=== PATIENT | female | born 1950 | race Caucasian/White ===

== ENCOUNTER 2016-05-20 14:49 | Emergency (ER) | payer MEDICAID ==
--- NOTE | 2016-05-20 15:53 | Emergency Department Record ---
History of Present Illness - General Chief Complaint: Fall Injury Stated Complaint: PT FELL/LT SIDE RIB PAIN,RT WRIST AND FINGER PAIN Time Seen by Provider: 05/20/16 15:37 Source: Patient Mode of Arrival: Ambulatory Limitations: No limitations - History of Present Illness Initial Comments: 65 yo female presents after a fall yesterday at the grocery store. Her foot stuck on a sticky floor. She twisted her back causing a fall. She has back pain in the upper and lower, right wrist pain and left shoulder pain. She has had prior back surgery. Onset/Timin -: Days(s) Fall From: Standing When Fall Occurred: 24 hours REGISTERED DENTAL ASSISTANT RDA Fall Witnessed: Yes, by bystander Place Fall Occurred: Other Loss of Consciousness: None Prolonged Down Time?: No Symptoms Prior to Fall: None Location - Extremities: Left: Shoulder, Right: Forearm Severity: Moderate Severity scale (1-10): 8 Quality: Sharp Context: Tripped/slipped - Barry Coma Scale Eye Response: (4) Open spontaneously Motor Response: (6) Obeys commands Verbal Response: (5) Oriented Geronimo Total: 15 - Related Data Home Medications Medication Instructions Recorded Confirmed Last Taken Aspirin [Aspirin EC] 81 mg PO DAILY 09/28/14 05/20/16 05/20/16 Ferrous Sulfate 325 mg PO BID 09/28/14 05/20/16 05/20/16 Folic Acid 1 mg PO DAILY 09/28/14 05/20/16 05/20/16 Hydroxychloroquine Sulfate 200 mg PO DAILY 09/28/14 05/20/16 05/20/16 [Plaquenil] Lisinopril 40 mg PO DAILY 09/28/14 05/20/16 05/20/16 Albuterol Sulfate [Proair Hfa] 1 - 2 puff IH Q4-6HR inhaler 09/28/15 05/20/16 05/20/16 Previous Rx's Medication Instructions Recorded Diazepam [Valium] 5 mg PO Q8H #15 tab 05/20/16 Allergies Allergy/AdvReac Type Severity Reaction Status Date / Time Sulfa (Sulfonamide Allergy Severe ANAPHYLAXIS Verified 05/20/16 15:22 Antibiotics) adhesive Allergy Intermediate ITCHING Verified 05/20/16 15:22 simvastatin Allergy Intermediate muscle pain Verified 05/20/16 15:22 Nzmuvlp-Tnn-[id number] Reductase Allergy Intermediate HYPERSENSIT Verified 05/20/16 15: 22 Inhibitor IVITY Travel Screening - Travel/Exposure Within Last 30 Days Have you traveled within the last 30 days?: No - Travel/Exposure Within Last Year Have you traveled outside the [place] in the last year?: No - Additonal Travel Details Have you been exposed to anyone with a communicable illness?: No - Travel Symptoms Symptom Screening: None Review of Systems Constitutional: Denies: Chills, Fever, Malaise, Weakness Eyes: Denies: Eye discharge ENT: Denies: Congestion, Throat pain Respiratory: Denies: Cough, Dyspnea, Hemoptysis, Stridor, Wheezes Cardiovascular: Denies: Chest pain, Palpitations, Syncope Endocrine: Denies: Fatigue Gastrointestinal: Denies: Abdominal pain, Diarrhea, Nausea, Vomiting Genitourinary: Denies: Dysuria, Urgency Musculoskeletal: Reports: Arthralgia, Back pain, Myalgia. Denies: Joint swelling, Neck pain Skin: Denies: Bruising, Change in color, Rash Neurological: Denies: Confusion, Headache Psychiatric: Denies: Anxiety Hematological/Lymphatic: Denies: Easy bleeding, Easy bruising, Swollen glands Past Medical History - SOCIAL HISTORY Smoking Status: Never smoker Alcohol Use: None Drug Use: None - RESPIRATORY Hx Respiratory Disorders: Yes Hx Asthma: Yes - CARDIOVASCULAR Hx Cardio Disorders: Yes Hx Irregular Heartbeat: Yes - NEURO Hx Neuro Disorders: Yes Comment:: Aneurysm - GI Hx GI Disorders: Yes Hx Reflux: Yes - Hx Genitourinary Disorders: Yes Hx Kidney Stones: Yes (hx) - ENDOCRINE Hx Endocrine Disorders: Yes Hx Diabetes: Yes (Type 2) Hx Thyroid Disease: Yes (Hypo) - MUSCULOSKELETAL Hx Musculoskeletal Disorders: Yes Hx Fibromyalgia: Yes - PSYCH Hx Psych Problems: Yes Hx Depression: Yes - HEMATOLOGY/ONCOLOGY Hx Hematology/Oncology Disorders: No Family Medical History Any Significant Family History?: Yes Hx Cancer: Brother/Sister Hx Heart Disease: Father, Brother/Sister Hx Stroke: Mother Physical Exam - General General Appearance: Alert, Oriented x3, Cooperative, No acute distress Limitations: No limitations - Head Head exam: Atraumatic, Normal inspection - Eye Eye exam: Normal appearance, PERRL. negative: Conjunctival injection, Periorbital swelling, Periorbital tenderness - ENT ENT exam: Normal exam, Mucous membranes moist, Normal external ear exam, Normal orophraynx Ear exam: Normal external inspection. negative: External canal tenderness Nasal Exam: Normal inspection. negative: Discharge, Sinus tenderness Mouth exam: Normal external inspection, Tongue normal Teeth exam: Normal inspection. negative: Dental caries Throat exam: Normal inspection. negative: Tonsillar erythema, Tonsillar exudate - Neck Neck exam: Normal inspection, Full ROM. negative: Tenderness - Respiratory Respiratory exam: Normal lung sounds bilaterally. negative: Respiratory distress - Cardiovascular Cardiovascular Exam: Regular rate, Normal rhythm, Normal heart sounds Peripheral Pulses: 2+: Radial (R), Radial (L) - GI/Abdominal GI/Abdominal exam: Soft. negative: Tenderness - Rectal Rectal exam: Deferred - exam: Deferred - Extremities Extremities exam: Normal inspection, Full ROM, Tenderness. negative: Joint swelling, Normal capillary refill Image of Full Body: 1 - distal right radius tenderness, no swelling or redness, pain with ROM 2 - tenderness anteriorly, near full ROM, pain with ROM, 3 - tender to palpation mid thoracic to lumbar, normal inspection, no abrasions. - Back Back exam: Reports: Normal inspection, Muscle spasm, Paraspinal tenderness, Tenderness, Vertebral tenderness. Denies: Full ROM - Neurological Neurological exam: Alert, Normal gait, Oriented X3, Reflexes normal. negative: Altered, Motor sensory deficit - Psychiatric Psychiatric exam: Normal affect, Normal mood - Skin Skin exam: Dry, Intact, Normal color, Warm Course Vital Signs 05/20/16 15:25 Temperature 98 F Pulse Rate 72 Respiratory 16 Rate Blood Pressure 136/69 Pulse Ox 99 - Reevaluation(s) Reevaluation #1: XR ordered of the wrist, shoulder and back 05/20/16 16:05 Reevaluation #2: The XR of the wrist, shoulder, and spine were negative for acute injury She will be DC home with supportive treatment with instructions to recheck with her PCP this week 05/20/16 17:10 Disposition Disposition: Discharge Clinical Impression: Contusion Qualifiers: Encounter type: initial encounter Contusion area: wrist Laterality: right Qualified Code(s): S60.211A - Contusion of right wrist, initial encounter Sprain of Right Wrist Qualifiers: Encounter type: initial encounter Qualified Code(s): S63.501A - Unspecified sprain of right wrist, initial encounter Sprain of left shoulder Qualifiers: Encounter type: initial encounter Shoulder sprain type: unspecified sprain Qualified Code(s): S43.402A - Unspecified sprain of left shoulder joint, initial encounter Strain of Lumbar Region Qualifiers: Encounter type: initial encounter Qualified Code(s): S39.012A - Strain of muscle, fascia and tendon of lower back, initial encounter Disposition: Home, Self-Care Condition: (1) Good Instructions: Wrist Injury (ED), Shoulder Sprain (ED), Musculoskeletal Pain (ED ) Additional Instructions: Call your doctor for close follow up this week You will need a recheck if any pain persists Prescriptions: Diazepam [Valium] 5 mg PO Q8H #15 tab Forms: Patient Portal Access
[2016-05-20] MEDS ORDERED: DIAZEPAM 5 MG TABLET PO ONE (16:07)
--- NOTE | 2016-05-24 14:38 | RADIOLOGY REPORT ---
EXAM: LUMBAR SPINE SERIES HISTORY: BACK PAIN STATUS POST FALL YESTERDAY. TECHNIQUE: AP, lateral, and bilateral oblique views of the lumbar spine were obtained. Comparison: 08/11/15. Encounter: Initial. FINDINGS: There are five lumbar vertebral segments. Minor levoconvex curvature is present within the lumbar spine and is unchanged. An electrical stimulator device is present with the lead extending into the right sacral region. There is severe disk space narrowing of the L3 through the L5 levels with associated end plate degenerative change. Mild disk space narrowing and end plate degenerative change is present at the L5-S1 level. Bilateral facet arthropathy is present from the L3 through the S1 levels. The vertebral body heights are maintained. There is no acute fracture or spondylolisthesis. The bony pelvis appears intact. IMPRESSION: 1. STABLE MULTILEVEL DEGENERATIVE DISK DISEASE AND FACET ARTHROPATHY. 2. NO ACUTE LUMBAR SPINE PATHOLOGY. JOB NUMBER: [id number] MTDD
--- NOTE | 2016-05-24 14:42 | RADIOLOGY REPORT ---
EXAM: THORACIC SPINE SERIES HISTORY: BACK PAIN STATUS POST FALL YESTERDAY. TECHNIQUE: AP, lateral and oblique views of the thoracic spine were obtained. Comparison: 08/11/15. FINDINGS: There is minor dextroconvex curvature within the mid thoracic spine which is unchanged. Post surgical changes are present within the cervical spine. There are minor end plate degenerative changes and anterior spurs throughout the thoracic region. These appear unchanged. The intervertebral disk spaces and vertebral body heights are maintained. There is no acute fracture or subluxation. The visualized ribs appear intact. IMPRESSION: 1. STABLE MILD MULTILEVEL DEGENERATIVE DISK DISEASE AND SLIGHT DEXTROCONVEX CURVATURE. 2. NO ACUTE THORACIC SPINE PATHOLOGY. JOB NUMBER: [id number] MTDD
--- NOTE | 2016-05-24 14:44 | RADIOLOGY REPORT ---
EXAM: LEFT SHOULDER HISTORY: LEFT SHOULDER PAIN STATUS POST FALL YESTERDAY. TECHNIQUE: Three views of the left shoulder were obtained. Comparison: None. Encounter: Initial. FINDINGS: The bones appear intact. There is no acute fracture or dislocation. There are minor arthritic changes of the acromioclavicular joint. IMPRESSION: NO ACUTE LEFT SHOULDER PATHOLOGY. JOB NUMBER: [id number] MTDD
--- NOTE | 2016-05-24 14:49 | RADIOLOGY REPORT ---
EXAM: RIGHT WRIST HISTORY: RIGHT WRIST PAIN STATUS POST FALL YESTERDAY. TECHNIQUE: Four views of the right wrist were obtained. Comparison: None. FINDINGS: The bones appear intact. There is no visible acute fracture or dislocation. Minor arthritic changes are present within the wrist. IMPRESSION: NO ACUTE FRACTURE IDENTIFIED. JOB NUMBER: [id number] MTDD
== END 2016-05-20 17:29 | disposition home or self-care (01) ==
LOC: ER 14:49
DX: S60.211A Contusion of right wrist, initial encounter (principal); S63.501A Unspecified sprain of right wrist, initial encounter; S43.402A Unspecified sprain of left shoulder joint, initial encounter; S39.012A Strain of muscle, fascia and tendon of lower back, initial encounter; W01.0XXA Fall on same level from slipping, tripping and stumbling without subsequent striking against object, initial encounter; Y92.512 Supermarket, store or market as the place of occurrence of the external cause
CPT/HCPCS: 29125; 99283; 99284; 72110; 73030; 72074; 73110; J3490

== ENCOUNTER 2016-06-02 16:45 | Emergency (ER) | payer MEDICAID ==
[2016-06-02] MEDS ORDERED: IBUPROFEN 600 MG TABLET PO ONE (17:45)
--- NOTE | 2016-06-02 17:48 | Emergency Department Record ---
History of Present Illness - General Chief complaint: Extremity Problem Stated complaint: RT WRIST INJ Time Seen by Provider: 06/02/16 17:41 Source: Patient Mode of Arrival: Ambulatory Limitations: No limitations - History of Present Illness Initial comments: 65 yo female presents with continued wrist and hand pain for one week after being seen in the ED after a fall. She locates the pain the the right wrist and the middle of the right hand. She has kept the hand immobilized in a splint for comfort. No redness or swelling. MD Complaint: Extremity pain, Extremity swelling, Joint pain Onset/Timin -: Week(s) Location: Right, Other Severity scale (1-10): 10 Quality: Sharp Consistency: Constant Improves with: Immobilization Worsens with: Exertion, Palpation, Weight bearing Associated Symptoms: Denies other symptoms - Related Data Home Medications Medication Instructions Recorded Confirmed Last Taken Aspirin [Aspirin EC] 81 mg PO DAILY 09/28/14 06/02/16 05/20/16 Ferrous Sulfate 325 mg PO BID 09/28/14 06/02/16 05/20/16 Folic Acid 1 mg PO DAILY 09/28/14 06/02/16 05/20/16 Hydroxychloroquine Sulfate 200 mg PO DAILY 09/28/14 06/02/16 05/20/16 [Plaquenil] Lisinopril 40 mg PO DAILY 09/28/14 06/02/16 05/20/16 Albuterol Sulfate [Proair Hfa] 1 - 2 puff IH Q4-6HR inhaler 09/28/15 06/02/16 05/20/16 Previous Rx's Medication Instructions Recorded Diazepam [Valium] 5 mg PO Q8H #15 tab 05/20/16 Allergies Allergy/AdvReac Type Severity Reaction Status Date / Time Sulfa (Sulfonamide Allergy Severe ANAPHYLAXIS Verified 05/20/16 15:22 Antibiotics) adhesive Allergy Intermediate ITCHING Verified 05/20/16 15:22 simvastatin Allergy Intermediate muscle pain Verified 05/20/16 15:22 Onukwvj-Cqx-Sbn Reductase Allergy Intermediate HYPERSENSIT Verified 05/20/16 15: 22 Inhibitor IVITY Travel Screening - Travel/Exposure Within Last 30 Days Have you traveled within the last 30 days?: No Review of Systems Constitutional: Denies: Chills, Fever, Weakness Eyes: Denies: Eye discharge ENT: Denies: Congestion, Throat pain Respiratory: Denies: Cough, Dyspnea, Wheezes Cardiovascular: Denies: Chest pain, Palpitations, Syncope Endocrine: Denies: Fatigue Gastrointestinal: Denies: Abdominal pain, Diarrhea, Nausea, Vomiting Genitourinary: Denies: Dysuria, Urgency Musculoskeletal: Reports: Arthralgia, Back pain (chronic), Joint swelling. Denies: Myalgia, Neck pain Skin: Denies: Bruising, Change in color, Rash Neurological: Denies: Confusion, Headache Psychiatric: Denies: Anxiety Hematological/Lymphatic: Denies: Blood Clots, Easy bleeding, Easy bruising, Swollen glands Past Medical History - SOCIAL HISTORY Smoking Status: Never smoker Alcohol Use: None Drug Use: None - RESPIRATORY Hx Respiratory Disorders: Yes Hx Asthma: Yes - CARDIOVASCULAR Hx Cardio Disorders: Yes Hx Irregular Heartbeat: Yes - NEURO Hx Neuro Disorders: Yes Comment:: Aneurysm - GI Hx GI Disorders: Yes Hx Reflux: Yes - Hx Genitourinary Disorders: Yes Hx Kidney Stones: Yes (hx) - ENDOCRINE Hx Endocrine Disorders: Yes Hx Diabetes: Yes (Type 2) Hx Thyroid Disease: Yes (Hypo) - MUSCULOSKELETAL Hx Musculoskeletal Disorders: Yes Hx Fibromyalgia: Yes - PSYCH Hx Psych Problems: Yes Hx Depression: Yes - HEMATOLOGY/ONCOLOGY Hx Hematology/Oncology Disorders: No Family Medical History Any Significant Family History?: Yes Hx Cancer: Brother/Sister Hx Heart Disease: Father, Brother/Sister Hx Stroke: Mother Physical Exam - General General Appearance: Alert, Oriented x3, Cooperative, No acute distress Limitations: No limitations - Head Head exam: Normal inspection - Eye Eye exam: Normal appearance, PERRL. negative: Conjunctival injection - ENT ENT exam: Normal exam Ear exam: Normal external inspection Nasal Exam: Normal inspection Mouth exam: Normal external inspection Teeth exam: Normal inspection Throat exam: Normal inspection - Neck Neck exam: Normal inspection, Full ROM. negative: Tenderness - Respiratory Respiratory exam: Normal lung sounds bilaterally. negative: Accessory muscle use, Chest wall tenderness, Respiratory distress - Cardiovascular Cardiovascular Exam: Regular rate, Normal rhythm, Normal heart sounds Peripheral Pulses: 2+: Radial (R) - GI/Abdominal GI/Abdominal exam: Soft. negative: Tenderness - Rectal Rectal exam: Deferred - exam: Deferred - Extremities Extremities exam: Full ROM, Joint swelling, Normal capillary refill, Tenderness. negative: Pedal edema Image of Hand: 1 - mild dorsal swelling, no redness, near full ROM without limitation - Back Back exam: Denies: CVA tenderness (R), CVA tenderness (L) - Neurological Neurological exam: Alert, Normal gait, Oriented X3, Reflexes normal. negative: Altered - Psychiatric Psychiatric exam: Normal affect, Normal mood. negative: Anxious - Skin Skin exam: Dry, Intact, Normal color, Warm Course Vital Signs 06/02/16 17:26 Temperature 97.9 F Pulse Rate 79 Respiratory 20 Rate Blood Pressure 150/73 Pulse Ox 96 - Reevaluation(s) Reevaluation #1: The XR's demonstrated significant degenerative changes and no fracture given her persistent pain she will be referred to the ortho specialty clinic 06/02/16 18:35 Disposition Disposition: Discharge Clinical Impression: Hand pain, right, Arthritis of hand, right Disposition: Home, Self-Care Condition: (1) Good Instructions: Osteoarthritis (ED) Additional Instructions: Call your doctor for a recheck first of the week You are being referred to the orthopedic specialty clinic for your ongoing hand pain after a fall Referrals: [facility] [DOCTOR OF OSTEOPATH] - Forms: Patient Portal Access Time of Disposition: 18:38
== END 2016-06-02 18:55 | disposition home or self-care (01) ==
LOC: ER 16:45
DX: M19.041 Primary osteoarthritis, right hand (principal); M19.031 Primary osteoarthritis, right wrist
CPT/HCPCS: 99283; 99284

== ENCOUNTER 2016-07-19 10:54 | Day surgery (SDC) | payer MEDICAID ==
[~2016-07-19 10:54] MED LIST: ACETAMINOPHEN 1000MG/100 ML PREMIX IV ONE
[2016-07-19] MEDS ORDERED: SEVOFLURANE 250 ML INH ONE (14:00)
[2016-07-19] MEDS ORDERED: MIDAZOLAM HCL 2MG/2ML VIAL IV ONE (14:00)
[2016-07-19] MEDS ORDERED: KETOROLAC 30 MG/ML VIAL IVP ONE (14:00)
[2016-07-19] MEDS ORDERED: FENTANYL PF 100MCG/2ML VIAL IV ONE (14:00)
[2016-07-19] MEDS ORDERED: LIDOCAINE 2% MDV (20MG/ML) 20ML VIAL IV ONE (14:00)
[2016-07-19] MEDS ORDERED: ONDANSETRON HCL IV 4 MG/2 ML VIAL IVP ONE (14:00)
[2016-07-19] MEDS ORDERED: PROPOFOL 10 MG/ML VIAL IV ONE (14:00)
[2016-07-19] MEDS ORDERED: HYDROCODONE/APAP 7.5/325MG TABLET PO ONE (15:16)
--- NOTE | 2016-07-20 17:00 | Operative Note ---
DATE OF SURGERY: 07/19/2016 Surgeon: Michael Dee DO Referring physician: Jamil Mayo M.D. 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 OPERATION: De Quervain's fasciotomy of the right wrist using 3.5 loupe magnification. PROCEDURE: This 65-year-old female was taken to the operating room and placed in the supine position on the operating room table. A general anesthetic was administered and the right upper extremity was elevated, prepped with Hibiclens and draped in the usual sterile fashion and was exsanguinated and the tourniquet inflated to 250 mmHg. A transverse incision was made along the radial aspect of the wrist, 1 cm proximal to the tip of the radial styloid, approximately 1.5 cm to 2.5 cm in length. Dissection was carried down through the skin and subcutaneous tissue. Hemostasis was obtained with the electrocautery. The proximal edge of the first dorsal compartment was identified. It was then split from its proximal to its distal margin under direct vision, to expose the abductor longus and extensor brevis tendons. All tendons were contained within this compartment, some increase in fluid was seen when the compartment was opened, but it otherwise appeared normal. No pathology of the tendons themselves appeared to be present. We moved the thumb in flexion extension and the tendons appeared to move appropriately. The wound was irrigated and subsequently closed with subcutaneous tissue with 4-0 Vicryl and the skin with a running 4-0 nylon suture. Sterile dressings were applied. The patient taken to the recovery room in satisfactory condition. GROSS PATHOLOGY: Some degree of some fluid in the first dorsal compartment of the right wrist was identified. Michael Dee DO [facility] CENTERNataliya
== END 2016-07-19 14:20 | disposition home or self-care (01) ==
LOC: SUR 10:54
PROVIDERS: ATTEND Orthopaedic Surgery
DX: M65.4 Radial styloid tenosynovitis [de Quervain] (principal); E11.9 Type 2 diabetes mellitus without complications; Z79.84 Long term (current) use of oral hypoglycemic drugs; I10 Essential (primary) hypertension; E78.00 Pure hypercholesterolemia, unspecified
CPT/HCPCS: 25000; 01810; J1885; J2405; J3010

== ENCOUNTER 2017-01-24 22:26 | Emergency (ER) | payer MEDICAID ==
[2017-01-24] MEDS ORDERED: TRAMADOL HCL 50 MG TABLET PO ONE (22:57)
--- NOTE | 2017-01-24 22:58 | Emergency Department Record ---
History of Present Illness - General Chief complaint: Pain Stated complaint: PAIN IN HANDS AND LEG CRAMPS Time Seen by Provider: 01/24/17 22:54 Source: Patient Mode of Arrival: Wheelchair Limitations: No limitations - History of Present Illness Initial comments: 66 yo female presents to ED for evaluation of her chronic pain symptoms related to fibromyalgia, lupus, and failed laminectomy. Patient had been taking [place] 3 times daily for her pain symptoms until 1 month ago when her medication was stopped by her PCP. Patient then saw her unloader operator today who informed her that they would not prescribe Buffalo for her chronic pain symptoms, and recommended follow-up with a pain specialist. Patient denies any new injury or pain. MD Complaint: Extremity pain Onset/Timin -: Month(s) Location: Right, Hand History of Same: Yes -: Yes Myalgia Severity scale (1-10): 10 Quality: Aching Consistency: Constant, Getting worse Improves with: Nothing Worsens with: Exertion, Palpation, Other Associated Symptoms: Denies other symptoms - Related Data Previous Rx's Medication Instructions Recorded Tramadol HCl 50 mg PO Q8H PRN #15 tab 01/24/17 Allergies Allergy/AdvReac Type Severity Reaction Status Date / Time Sulfa (Sulfonamide Allergy Severe ANAPHYLAXIS Unverified 01/10/17 14:59 Antibiotics) adhesive Allergy Intermediate ITCHING Unverified 01/10/17 14:59 simvastatin Allergy Intermediate muscle pain Unverified 01/10/17 14:59 Spngeql-Wia-Bao Reductase Allergy Intermediate HYPERSENSIT Unverified 01/10/17 14:59 Inhibitor IVITY Travel Screening - Travel/Exposure Within Last 30 Days Have you traveled within the last 30 days?: No - Travel Symptoms Symptom Screening: None Review of Systems Constitutional: Denies: Chills, Fever, Malaise, Night sweats Eyes: Denies: Eye discharge, Eye pain, Photophobia ENT: Denies: Congestion, Ear pain, Epistaxis Respiratory: Denies: Cough, Dyspnea Cardiovascular: Denies: Chest pain, Dyspnea on exertion Endocrine: Denies: Fatigue, Heat or cold intolerance Gastrointestinal: Denies: Abdominal pain, Nausea, Vomiting Genitourinary: Denies: Incontinence, Retention Musculoskeletal: Reports: Arthralgia, Myalgia. Denies: Back pain, Gout, Joint swelling Skin: Denies: Bruising, Change in color Neurological: Denies: Abnormal gait, Confusion, Headache, Seizure Psychiatric: Denies: Anxiety Hematological/Lymphatic: Denies: Anemia, Blood Clots Past Medical History - SOCIAL HISTORY Smoking Status: Never smoker Alcohol Use: None Drug Use: None - RESPIRATORY Hx Respiratory Disorders: Yes Hx Asthma: Yes Hx Bronchitis: Yes Hx COPD: Yes (triggered by pollen and dust well controlled with meds) Hx Pneumonia: Yes - CARDIOVASCULAR Hx Cardio Disorders: Yes Hx Chest Pain: Yes (from fibro.) Hx Hypertension: Yes (on meds fair control) Hx Irregular Heartbeat: Yes (on meds.) - NEURO Hx Neuro Disorders: Yes Hx Headaches: Yes (from neck) Comment:: Aneurysm stable x's 20-30 yrs. - GI Hx GI Disorders: Yes Hx Reflux: Yes Hx Nausea/Vomiting: Yes - Hx Genitourinary Disorders: Yes Hx Bladder Problem: Yes (has bladder stim.) Hx Kidney Stones: Yes (hx) - ENDOCRINE Hx Endocrine Disorders: Yes Hx Diabetes: Yes (Type 2) Hx Thyroid Disease: Yes (Hypo) Comment:: blood sugars in the 90's A1C 5.5 - MUSCULOSKELETAL Hx Musculoskeletal Disorders: Yes Hx Arthritis: Yes Hx Fibromyalgia: Yes Hx Gout: Yes Comment:: lupus and sojourns - PSYCH Hx Psych Problems: Yes Hx Depression: Yes - HEMATOLOGY/ONCOLOGY Hx Hematology/Oncology Disorders: Yes Hx Anemia: Yes Family Medical History Any Significant Family History?: Yes Hx Cancer: Brother/Sister Hx Heart Disease: Father, Brother/Sister Hx Stroke: Mother Physical Exam - General General Appearance: Alert, Oriented x3, Cooperative, Mild distress Limitations: No limitations - Head Head exam: Atraumatic, Normocephalic, Normal inspection Head exam detail: negative: Abrasion, Contusion, Rutherford's sign, General tenderness, Hematoma, Laceration - Eye Eye exam: Normal appearance. negative: Conjunctival injection, Periorbital swelling, Periorbital tenderness, Scleral icterus - ENT Ear exam: negative: Auricular hematoma, Auricular trauma Nasal Exam: negative: Active bleeding, Discharge, Dried blood, Foreign body Mouth exam: negative: Drooling, Laceration, Muffled voice, Tongue elevation - Neck Neck exam: Normal inspection. negative: Meningismus, Tenderness - Respiratory Respiratory exam: Normal lung sounds bilaterally. negative: Rales, Respiratory distress, Rhonchi, Stridor - Cardiovascular Cardiovascular Exam: Regular rate, Normal rhythm, Normal heart sounds - GI/Abdominal GI/Abdominal exam: Soft. negative: Rebound, Rigid, Tenderness - Rectal Rectal exam: Deferred - exam: Deferred - Extremities Extremities exam: Tenderness, Other (Wrist splint to the right wrist (velcro following surgery 5 months ago), strength 5/5 and symmetric). negative: Calf tenderness, Pedal edema - Back Back exam: Denies: CVA tenderness (R), CVA tenderness (L) - Neurological Neurological exam: Alert, Normal gait, Oriented X3 - Psychiatric Psychiatric exam: Normal affect, Normal mood - Skin Skin exam: Normal color. negative: Abrasion Type of lesion: negative: abrasion Course Vital Signs 01/24/17 22:35 Temperature 98.2 F Pulse Rate 77 Respiratory 20 Rate Blood Pressure 221/99 Pulse Ox 99 - Reevaluation(s) Reevaluation #1: 01/24/17 23:10 Patient was seen and examined, reports that her chronic pain symptoms are worse due to recent cold weather change. I discussed with her our limitations from the ED to manage chronic pain symptoms and further recommended a consultation with a pain specialist. Patient was given a referral to Dr. Taylor for evaluation of her pain symptoms, will prescribe Tramadol as needed for her pain symptoms as well. Patient otherwise appears stable for discharge at this time. Disposition Disposition: Discharge Clinical Impression: Fibromyalgia Chronic pain Qualifiers: Chronic pain type: other chronic pain Qualified Code(s): G89.29 - Other chronic pain Osteoarthritis Qualifiers: Osteoarthritis location: unspecified site Osteoarthritis type: unspecified Qualified Code(s): M19.90 - Unspecified osteoarthritis, unspecified site Disposition: Home, Self-Care Instructions: Pain Management in the Elderly (ED) Additional Instructions: Return to ED if your symptoms worsen or if you have any concerns. Call Dr. Taylor for further evaluation of your chronic pain symptoms for a follow -up appointment in 5-7 days. Tramadol as directed. Prescriptions: Tramadol HCl 50 mg PO Q8H PRN #15 tab PRN Reason: Pain - Moderate (5-7) Referrals: DAVIS TAYLOR [DOCTOR OF OSTEOPATH] - Forms: Patient Portal Access Time of Disposition: 22:57 Quality - Quality Measures Quality Measures: N/A - Blood Pressure Screening Does Patient Have Any of the Following: Active Dx of HTN Blood Pressure Classification: Pre-Hypertensive BP Reading Systolic Measurement: 212 Diastolic Measurement: 87 Screening for High Blood Pressure: Patient Exclusion, Hx of HTN [G9744]
== END 2017-01-24 23:13 | disposition home or self-care (01) ==
LOC: ER 22:26
DX: G89.29 Other chronic pain (principal); M79.641 Pain in right hand; M79.7 Fibromyalgia; M19.90 Unspecified osteoarthritis, unspecified site
CPT/HCPCS: 99283

== ENCOUNTER 2017-06-07 14:40 | Emergency (ER) | payer MEDICAID ==
--- NOTE | 2017-06-07 15:00 | Emergency Department Record ---
History of Present Illness - General Chief complaint: Pain Stated complaint: LT SIDE RIB PAIN Time Seen by Provider: 06/07/17 14:53 Source: Patient Mode of Arrival: Ambulatory Limitations: No limitations - History of Present Illness Initial comments: 66 yo female presents with sore muscles and ribs on the left. She was moving a couch by herself. She felt pain while pushing the cough and stopped. She has been tender and had pain since then. No shortness of breath. No cough. The pain occurs with moving and touching the area. No other complaints or pain. No weakness, numbness or tingling. No arm pain on the left. Onset/Timin -: Days(s) Location: Left History of Same: No Radiation: Other Severity scale (1-10): 10 Quality: Aching Consistency: Constant Associated Symptoms: Denies other symptoms - Related Data Previous Rx's Medication Instructions Recorded Diazepam [Valium] 5 mg PO Q12H #4 tab 06/07/17 Allergies Allergy/AdvReac Type Severity Reaction Status Date / Time Sulfa (Sulfonamide Allergy Severe ANAPHYLAXIS Verified 06/07/17 14:52 Antibiotics) adhesive Allergy Intermediate ITCHING Verified 06/07/17 14:52 Jvpzund-Fnl-Uic Reductase Allergy Intermediate HYPERSENSIT Verified 06/07/17 14: 52 Inhibitor IVITY Travel Screening - Travel/Exposure Within Last 30 Days Have you traveled within the last 30 days?: No Review of Systems Constitutional: Denies: Chills, Fever, Malaise, Weakness Eyes: Denies: Eye discharge ENT: Denies: Congestion, Throat pain Respiratory: Denies: Cough, Dyspnea, Hemoptysis, Stridor, Wheezes Cardiovascular: Reports: As per HPI, Chest pain. Denies: Palpitations, Syncope Endocrine: Denies: Fatigue Gastrointestinal: Denies: Abdominal pain, Diarrhea, Nausea, Vomiting Genitourinary: Denies: Dysuria, Urgency Musculoskeletal: Reports: Myalgia. Denies: Arthralgia, Back pain, Joint swelling, Neck pain Skin: Denies: Bruising, Change in color, Rash Neurological: Denies: Headache, Numbness, Weakness Psychiatric: Denies: Anxiety Hematological/Lymphatic: Denies: Blood Clots, Easy bleeding, Easy bruising, Swollen glands Past Medical History - SOCIAL HISTORY Smoking Status: Never smoker Alcohol Use: None Drug Use: None - RESPIRATORY Hx Respiratory Disorders: Yes Hx Asthma: Yes Hx Bronchitis: Yes Hx COPD: Yes (triggered by pollen and dust well controlled with meds) Hx Pneumonia: Yes - CARDIOVASCULAR Hx Cardio Disorders: Yes Hx Chest Pain: Yes (from fibro.) Hx Hypertension: Yes (on meds fair control) Hx Irregular Heartbeat: Yes (on meds.) - NEURO Hx Neuro Disorders: Yes Hx Headaches: Yes (from neck) Comment:: Aneurysm stable x's 20-30 yrs. - GI Hx GI Disorders: Yes Hx Reflux: Yes Hx Nausea/Vomiting: Yes - Hx Genitourinary Disorders: Yes Hx Bladder Problem: Yes (has bladder stim.) Hx Kidney Stones: Yes (hx) - ENDOCRINE Hx Endocrine Disorders: Yes Hx Diabetes: Yes (Type 2) Hx Thyroid Disease: Yes (Hypo) - MUSCULOSKELETAL Hx Musculoskeletal Disorders: Yes Hx Arthritis: Yes Hx Fibromyalgia: Yes Hx Gout: Yes Comment:: lupus and sojourns - PSYCH Hx Psych Problems: Yes Hx Depression: Yes - HEMATOLOGY/ONCOLOGY Hx Hematology/Oncology Disorders: Yes Hx Anemia: Yes Family Medical History Any Significant Family History?: Yes Hx Cancer: Brother/Sister Hx Heart Disease: Father, Brother/Sister Hx Stroke: Mother Physical Exam - General General Appearance: Alert, Oriented x3, Cooperative, No acute distress Limitations: No limitations - Head Head exam: Atraumatic, Normal inspection - Eye Eye exam: Normal appearance. negative: Conjunctival injection, Scleral icterus - ENT ENT exam: Normal exam Ear exam: Normal external inspection Nasal Exam: Normal inspection Mouth exam: Normal external inspection - Neck Neck exam: Normal inspection, Full ROM. negative: Tenderness - Respiratory Respiratory exam: Normal lung sounds bilaterally, Chest wall tenderness. negative: Accessory muscle use, Decreased breath sounds, Prolonged expiratory, Rales, Respiratory distress, Rhonchi, Stridor, Wheezes - Cardiovascular Cardiovascular Exam: Regular rate, Normal rhythm, Normal heart sounds - GI/Abdominal GI/Abdominal exam: Soft. negative: Distended, Guarding, Rebound, Rigid, Tenderness - Rectal Rectal exam: Deferred - exam: Deferred - Extremities Extremities exam: Normal inspection, Full ROM. negative: Pedal edema, Tenderness Image of Full Body: 1 - tender along the lateral rib cage, no rash, no swelling, very reproducible on palpation. - Back Back exam: Reports: Normal inspection, Full ROM. Denies: CVA tenderness (R), CVA tenderness (L), Muscle spasm, Paraspinal tenderness, Tenderness, Vertebral tenderness - Neurological Neurological exam: Alert, Oriented X3 - Psychiatric Psychiatric exam: negative: Agitated, Anxious - Skin Skin exam: Dry, Intact, Normal color, Warm Course Vital Signs 06/07/17 14:46 Temperature 98.4 F Pulse Rate 78 Respiratory 20 Rate Blood Pressure 160/83 Pulse Ox 98 - Reevaluation(s) Reevaluation #1: 06/07/17 15:40 The CXR was negative for acute process RT taught IS to the patient at bedside We discussed home care and reasons to return to the ED Disposition Disposition: Discharge Clinical Impression: Rib pain on left side, Chest wall pain Disposition: Home, Self-Care Condition: (1) Good Instructions: Chest Wall Pain (ED) Additional Instructions: Use the breathing exercises as instructed Return to the ED if worse, cough, short of breath or any new concerns No driving 8 hours within taking the Valium Prescriptions: Diazepam [Valium] 5 mg PO Q12H #4 tab Forms: Patient Portal Access Time of Disposition: 15:42 Quality - Quality Measures Quality Measures: N/A - Blood Pressure Screening Does Patient Have Any of the Following: No Blood Pressure Classification: Pre-Hypertensive BP Reading Systolic Measurement: 160 Diastolic Measurement: 83 Screening for High Blood Pressure: < Pre-Hypertensive BP, F/U Documented > [ G8950] Pre-Hypertensive Follow-up Interventions: Referral to alternative/primary care provider.
[2017-06-07] MEDS ORDERED: LIDOCAINE 5% PATCH TOP ONE (15:24)
--- NOTE | 2017-06-08 11:41 | RADIOLOGY REPORT ---
DATE: 06/07/2017. EXAM: TWO VIEWS OF THE CHEST. HISTORY: Chest pain. TECHNIQUE: Frontal and lateral views of the chest. COMPARISON: Prior chest date 10/06/2014. FINDINGS: The heart size is normal. Postsurgical change in the cervical spine. Osteopenia. The lungs are clear. No pneumothorax. IMPRESSION: NO ACUTE CARDIOPULMONARY PROCESS. JOB NUMBER: [id number] MTDD
== END 2017-06-07 16:01 | disposition home or self-care (01) ==
LOC: ER 14:40
DX: R07.89 Other chest pain (principal); R07.81 Pleurodynia; I10 Essential (primary) hypertension; J44.9 Chronic obstructive pulmonary disease, unspecified
CPT/HCPCS: 71046; 94010; 99283

== ENCOUNTER 2017-07-26 22:09 | Emergency (ER) | payer MEDICAID ==
[2017-07-26] MEDS ORDERED: ONDANSETRON HCL IV 4 MG/2 ML VIAL IVP ONE (22:36)
[2017-07-26] MEDS ORDERED: FENTANYL PF 100MCG/2ML VIAL IVP ONE (22:36)
--- NOTE | 2017-07-26 22:40 | Emergency Department Record ---
History of Present Illness - General Chief complaint: Pain Stated complaint: RT RIB PAIN Time Seen by Provider: 07/26/17 22:35 Source: Patient Mode of Arrival: Ambulatory Limitations: No limitations - History of Present Illness Initial comments: 66 yo female presents to ED for evaluation of right sided rib pain symptoms that began 2-3 days ago. Patient denies specific injury, denies fevers, chills , or cough symptoms. Patient denies history of DVT or PE, denies the use of anticoagulation medications. Patient denies rash symptoms. Patient reports worsening of her chest pain symptoms with palpation, deep inspiration, and movement. MD Complaint: Other (chest wall pain) Onset/Timin -: Days(s) Location: Right History of Same: No Radiation: None Severity scale (1-10): 8 Quality: Sharp Consistency: Constant, Getting worse Improves with: Nothing Worsens with: Palpation Associated Symptoms: Denies other symptoms - Related Data Previous Rx's Medication Instructions Recorded Diazepam [Valium] 5 mg PO Q12H #4 tab 06/07/17 Azithromycin [Zithromax] 250 mg PO DAILY #6 tab 07/27/17 Hydrocodone/Acetaminophen [Wenden 1 each PO Q6H PRN #10 tablet 07/27/17 5-325 Tablet] Allergies Allergy/AdvReac Type Severity Reaction Status Date / Time Sulfa (Sulfonamide Allergy Severe ANAPHYLAXIS Verified 07/26/17 22:14 Antibiotics) adhesive Allergy Intermediate ITCHING Verified 07/26/17 22:14 Sonvjhh-Grx-Pyr Reductase Allergy Intermediate HYPERSENSIT Verified 07/26/17 22: 14 Inhibitor IVITY Travel Screening - Travel/Exposure Within Last 30 Days Have you traveled within the last 30 days?: No - Travel/Exposure Within Last Year Have you traveled outside the [place] in the last year?: No - Additonal Travel Details Have you been exposed to anyone with a communicable illness?: No - Travel Symptoms Symptom Screening: None Review of Systems Constitutional: Denies: Chills, Fever, Malaise, Night sweats Eyes: Denies: Eye discharge, Eye pain ENT: Denies: Congestion, Ear pain, Epistaxis Respiratory: Denies: Cough, Dyspnea Cardiovascular: Reports: Chest pain. Denies: Dyspnea on exertion, Edema, Palpitations Endocrine: Denies: Fatigue, Heat or cold intolerance Gastrointestinal: Denies: Abdominal pain, Nausea, Vomiting Genitourinary: Denies: Incontinence, Retention Musculoskeletal: Denies: Arthralgia, Back pain, Gout, Joint swelling Skin: Denies: Bruising, Change in color Neurological: Denies: Abnormal gait, Confusion, Headache, Seizure Psychiatric: Denies: Anxiety Hematological/Lymphatic: Denies: Anemia, Blood Clots Past Medical History - SOCIAL HISTORY Smoking Status: Never smoker Alcohol Use: Rare Drug Use: None - RESPIRATORY Hx Respiratory Disorders: Yes Hx Asthma: Yes Hx Bronchitis: Yes Hx COPD: Yes (triggered by pollen and dust well controlled with meds) Hx Pneumonia: Yes - CARDIOVASCULAR Hx Cardio Disorders: Yes Hx Chest Pain: Yes (from fibro.) Hx Hypertension: Yes (on meds fair control) Hx Irregular Heartbeat: Yes (on meds.) - NEURO Hx Neuro Disorders: Yes Hx Headaches: Yes (from neck) Comment:: Aneurysm stable x's 20-30 yrs. - GI Hx GI Disorders: Yes Hx Reflux: Yes Hx Nausea/Vomiting: Yes - Hx Genitourinary Disorders: Yes Hx Bladder Problem: Yes (has bladder stim.) Hx Kidney Stones: Yes (hx) - ENDOCRINE Hx Endocrine Disorders: Yes Hx Diabetes: Yes (Type 2) Hx Thyroid Disease: Yes (Hypo) - MUSCULOSKELETAL Hx Musculoskeletal Disorders: Yes Hx Arthritis: Yes Hx Fibromyalgia: Yes Hx Gout: Yes Comment:: lupus and sojourns and raynauds - PSYCH Hx Psych Problems: Yes Hx Depression: Yes - HEMATOLOGY/ONCOLOGY Hx Hematology/Oncology Disorders: Yes Hx Anemia: Yes Family Medical History Any Significant Family History?: No Hx Cancer: Brother/Sister Hx Heart Disease: Father, Brother/Sister Hx Stroke: Mother Physical Exam - General General Appearance: Alert, Oriented x3, Cooperative, Moderate distress Limitations: No limitations - Head Head exam: Atraumatic, Normocephalic, Normal inspection Head exam detail: negative: Abrasion, Contusion, Rutherford's sign, General tenderness, Hematoma, Laceration - Eye Eye exam: Normal appearance. negative: Conjunctival injection, Periorbital swelling, Periorbital tenderness, Scleral icterus - ENT Ear exam: negative: Auricular hematoma, Auricular trauma Nasal Exam: negative: Active bleeding, Discharge, Dried blood, Foreign body Mouth exam: negative: Drooling, Laceration, Muffled voice, Tongue elevation - Neck Neck exam: Normal inspection. negative: Meningismus, Tenderness - Respiratory Respiratory exam: Normal lung sounds bilaterally, Chest wall tenderness (Right lateral ribs). negative: Rales, Respiratory distress, Rhonchi, Stridor - Cardiovascular Cardiovascular Exam: Regular rate, Normal rhythm, Normal heart sounds - GI/Abdominal GI/Abdominal exam: Soft. negative: Rebound, Rigid, Tenderness - Rectal Rectal exam: Deferred - exam: Deferred - Extremities Extremities exam: Normal inspection. negative: Calf tenderness, Pedal edema, Tenderness - Back Back exam: Denies: CVA tenderness (R), CVA tenderness (L) - Neurological Neurological exam: Alert, Normal gait, Oriented X3 - Psychiatric Psychiatric exam: Normal affect, Normal mood - Skin Skin exam: Normal color. negative: Abrasion Type of lesion: negative: abrasion Course Vital Signs 07/26/17 22:14 Temperature 98.1 F Pulse Rate 76 Respiratory 18 Rate Blood Pressure 142/81 Pulse Ox 99 - Reevaluation(s) Reevaluation #1: 07/26/17 23:20 Initial labs reviewed, CBC grossly unremarkable, D-Dimer minimally elevated. CTA Chest ordered for further evaluation. Reevaluation #2: 07/27/17 00:19 CTA Chest: No PE Grouped lesions posterior-medial right lower lobe suggesting developing pneumonia Fracture anterior LEFT rib. Patient was updated on all results, reports improvement in her pain symptoms, and appears stable for discharge at this time on Zithromax as directed. All questions were answered at the time of discharge as well. Medical Decision Making - Lab Data Result diagrams: 07/26/17 22:51 07/26/17 22:51 Disposition Disposition: Discharge Clinical Impression: Chest wall muscle strain Qualifiers: Encounter type: initial encounter Qualified Code(s): S29.011A - Strain of muscle and tendon of front wall of thorax, initial encounter Pneumonia Qualifiers: Pneumonia type: due to unspecified organism Laterality: right Lung location: lower lobe of lung Qualified Code(s): J18.1 - Lobar pneumonia, unspecified organism Disposition: Home, Self-Care Condition: (2) Stable Instructions: Chest Wall Pain (ED) Additional Instructions: Return to ED if your symptoms worsen or if you have any concerns. Follow-up with your family doctor in 3-5 days as directed. Wenden and Zithromax as directed for pain. Prescriptions: Azithromycin [Zithromax] 250 mg PO DAILY #6 tab Hydrocodone/Acetaminophen [Wenden 5-325 Tablet] 1 each PO Q6H PRN #10 tablet PRN Reason: Pain - Moderate (5-7) Forms: Patient Portal Access Time of Disposition: 00:21 Quality - Quality Measures Quality Measures: N/A - Blood Pressure Screening Does Patient Have Any of the Following: No Blood Pressure Classification: Pre-Hypertensive BP Reading Systolic Measurement: 142 Diastolic Measurement: 81 Screening for High Blood Pressure: < Pre-Hypertensive BP, F/U Documented > [ G8950] Pre-Hypertensive Follow-up Interventions: Referral to alternative/primary care provider.
[2017-07-26] MEDS ORDERED: 0.9 % SODIUM CHLORIDE 1000ML 500 ML IV SCH ×2 (22:45→23:30)
[2017-07-26 23:03] LABS: BASO % 0.6 % (0-6); EOS % 4.3 % (0-6); GRAN % 53.6 % (47-80); HEMATOCRIT 32.4 % (35.0-47.0); HEMOGLOBIN 10.8 gm/dl (11.6-16.0); MEAN CELL VOLUME 85.5 fl (81-97); MEAN CORPUSCULAR HGB CONC 33.3 g/dl (32-36); MEAN PLATELET VOLUME 9.4 fl (7.4-10.4); MONO % 9.5 % (0-9); PLATELET COUNT 349 K/uL (130-400); RED BLOOD COUNT 3.79 M/uL (3.80-5.40); RED CELL DISTRIBUTION WIDTH 12.6 % (11.5-14.5); WHITE BLOOD COUNT W/O DIFF 5.2 K/uL (4.2-12.2)
[2017-07-26 23:04] LABS: MEAN CORPUSCULAR HEMOGLOBIN 28.4 pg (27-33)
[2017-07-26 23:16] LABS: BILIRUBIN,TOTAL < 0.20 mg/dL (0.2-1.0); BLOOD UREA NITROGEN 11 mg/dL (8-23); CREATININE 0.6 mg/dL (0.5-0.9); EST GLOMERULAR FILTRATION RATE > 60 mL/min
[2017-07-26 23:17] LABS: TOTAL PROTEIN 7.4 g/dL (6.6-8.7)
[2017-07-26 23:19] LABS: GLUCOSE,RANDOM 84 mg/dL (74-109)
[2017-07-26 23:21] LABS: ALB/GLOB RATIO 1.3 (1.1-1.8); ALBUMIN 4.2 g/dL (4.0-5.0); ALT/SGPT 17 U/L (<33); AST/SGOT 21 U/L (10.0-35.0)
[2017-07-26 23:22] LABS: ALKALINE PHOSPHATASE 85 U/L (35-104)
[2017-07-27] MEDS ORDERED: AZITHROMYCIN 500 MG TABLET PO ONE (00:24)
[2017-07-27] MEDS ORDERED: AZITHROMYCIN 500 MG TABLET PO SCH (10:00)
--- NOTE | 2017-07-28 12:59 | CT ANGIOGRAM REPORT ---
EXAM: CT ANGIOGRAM CHEST CTA w contrast HISTORY: RIGHT RIB PAIN. COMPARISON: Chest x-ray performed the same day. TECHNIQUE: CTA of the chest was performed after intravenous administration of 80 mL of Omnipaque-350 contrast material. Sagittal and coronal reformatted images were performed on an independent workstation. FINDINGS: There is no mass or filling defect to suggest pulmonary embolism. The heart and pericardium appears unremarkable. There is no mediastinal or hilar lymphadenopathy. The lung solo are clear. No infiltrate or pleural effusion. There are small nodular densities in the posterior medial aspect of the right lower lobe. This may represent a focal pneumonitis. There is a fracture deformity of the anterior left eighth rib. IMPRESSION: 1. NO CTA FINDINGS SUGGESTIVE OF PULMONARY EMBOLISM. 2. GROUND-GLASS NODULAR DENSITIES IN THE POSTERIOR MEDIAL RIGHT LUNG BASE. FOCAL PNEUMONITIS IS CONSIDERED. NO INFILTRATE OR PLEURAL EFFUSION. JOB NUMBER: [id number] MTDD
== END 2017-07-27 00:35 | disposition home or self-care (01) ==
LOC: ER 22:09
DX: S39.011A Strain of muscle, fascia and tendon of abdomen, initial encounter (principal); J18.1 Lobar pneumonia, unspecified organism; R79.89 Other specified abnormal findings of blood chemistry; I10 Essential (primary) hypertension; E11.9 Type 2 diabetes mellitus without complications; X58.XXXA Exposure to other specified factors, initial encounter
CPT/HCPCS: 99284 ×2; 96374; 96375; 85025; 80053; 85379; 71275; Q9967; J2405; J3010; J7030

== ENCOUNTER 2017-12-12 07:58 | Day surgery (SDC) | payer MEDICARE, MEDICAID ==
[~2017-12-12 07:58] MED LIST changes: +ACETAMINOPHEN 1,000 MG/100 ML BTL IV ONE; -ACETAMINOPHEN 1000MG/100 ML PREMIX IV ONE
[2017-12-12] MEDS ORDERED: CITRIC ACID/SODIUM CITRATE 30 ML SOLUTION (BICITRA) PO ONE (07:59)
[2017-12-12] MEDS ORDERED: FENTANYL PF 100MCG/2ML VIAL IV ONE (07:59)
[2017-12-12] MEDS ORDERED: LIDOCAINE 1% MDV (10MG/ML) 20ML VIAL SQ ONE (07:59)
[2017-12-12] MEDS ORDERED: HYDROCODONE/APAP 5/325MG TABLET PO ONE (07:59)
[2017-12-12] MEDS ORDERED: PROPOFOL 10 MG/ML VIAL IV ONE (07:59)
[2017-12-12] MEDS ORDERED: METOCLOPRAMIDE HCL 10 MG/2 ML VIAL IVP ONE (07:59)
[2017-12-12] MEDS ORDERED: LIDOCAINE 2% MDV (20MG/ML) 20ML VIAL IV ONE (07:59)
[2017-12-12] MEDS ORDERED: MIDAZOLAM HCL 2MG/2ML VIAL IV ONE (07:59)
--- NOTE | 2017-12-18 09:01 | Operative Note ---
DATE OF SURGERY: 12/12/2017 Surgeon: Michael Dee DO PREOPERATIVE DIAGNOSIS: Trigger finger of the right ring finger. POSTOPERATIVE DIAGNOSIS: Trigger finger of the right ring finger. OPERATION: Tenotomy A1 dexter right ring finger using 3.5 loop magnification. DESCRIPTION OF PROCEDURE: This 67-year-old female was taken to the operating room and placed in the supine position on the operating room table. An assisted local anesthesia was administered with 1% Xylocaine plain being used as a local anesthetic in the hand. After prepping with Hibiclens and draping in the usual sterile fashion, it was exsanguinated and the tourniquet inflated to 250 mmHg. Xylocaine 1% was injected into the area of the incision on the palmar surface overlying the head of the 4th metacarpal in the palm of the hand. Dissection was then carried down through the skin and subcutaneous tissue. The proximal edge of the A1 dexter was easily identified. It was then split from its proximal to its distal margin under direct vision and a mild bulbous appearance of the sublimis tendon was identified. The finger was then taken through range of motion with no impingement being identified. The wound was irrigated and closed with interrupted 6-0 nylon suture. Sterile dressings were applied and the patient was taken to the recovery room in satisfactory condition. GROSS PATHOLOGY: This patient demonstrated a slightly bulbous appearance to the sublimis tendon to the right ring finger. CC: FIDELIA Werner
== END 2017-12-12 10:30 | disposition home or self-care (01) ==
LOC: SUR 07:58
PROVIDERS: ATTEND Orthopaedic Surgery
DX: M65.341 Trigger finger, right ring finger (principal); I10 Essential (primary) hypertension; E11.9 Type 2 diabetes mellitus without complications; E78.00 Pure hypercholesterolemia, unspecified; D64.9 Anemia, unspecified; M06.9 Rheumatoid arthritis, unspecified; M79.7 Fibromyalgia
CPT/HCPCS: 26055; 01810; J3010; J2765

== ENCOUNTER 2018-08-21 20:01 | Emergency (ER) | payer MEDICARE, MEDICAID ==
[2018-08-21] MEDS ORDERED: PREDNISONE 20 MG TAB PO ONE (20:44)
--- NOTE | 2018-08-21 20:46 | Emergency Department Record ---
History of Present Illness - General Chief complaint: Pain Stated complaint: LT KNEE PAIN Time Seen by Provider: 08/21/18 20:42 Source: Patient Mode of Arrival: Ambulatory Limitations: No limitations - History of Present Illness Initial comments: 67 yo female presents with knee pain on the left. She has a history of "crystals" on the knee. She is not aware of any history of gout. The knee has hurt on and off for years. It worsened this last week. No fever or warmth. It hurts over the knee cap. Dr Mccann is her PCP MD Complaint: Joint pain -: Days(s) Location: Left History of Same: Yes -: Yes Arthralgia Radiation: Distal Quality: Aching Consistency: Constant Improves with: Immobilization Worsens with: Palpation, Walking, Weight bearing Associated Symptoms: Denies other symptoms - Related Data Previous Rx's Medication Instructions Recorded Prednisone [Prednisone 20Mg] 20 mg PO DAILY #5 tab 08/21/18 Allergies Allergy/AdvReac Type Severity Reaction Status Date / Time Sulfa (Sulfonamide Allergy Severe ANAPHYLAXIS Verified 08/21/18 20:46 Antibiotics) adhesive Allergy Intermediate ITCHING Verified 08/21/18 20:46 [id number] Reductase Allergy Intermediate HYPERSENSIT Verified 08/21/18 20:46 Inhibitor IVITY Review of Systems Constitutional: Denies: Chills, Fever, Malaise, Weakness Eyes: Denies: Eye discharge ENT: Denies: Congestion, Throat pain Respiratory: Denies: Cough Cardiovascular: Denies: Chest pain, Palpitations, Syncope Endocrine: Denies: Fatigue Gastrointestinal: Denies: Abdominal pain, Diarrhea, Nausea, Vomiting Genitourinary: Denies: Dysuria Musculoskeletal: Reports: Arthralgia, Joint swelling. 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 not working well. frequent urination wears depends) - ENDOCRINE Comment:: 89 this am good control - MUSCULOSKELETAL Hx Arthritis: Yes (RA) - PSYCH Hx Psych Problems: Yes Hx Depression: Yes - HEMATOLOGY/ONCOLOGY Hx Hematology/Oncology Disorders: Yes Hx Anemia: Yes Family Medical History Hx Cancer: Brother/Sister Hx Heart Disease: Father, Brother/Sister Hx Stroke: Mother Physical Exam - General General Appearance: Alert, Oriented x3, Cooperative, No acute distress Limitations: No limitations - Head Head exam: Atraumatic, Normal inspection - Eye Eye exam: Normal appearance. negative: Conjunctival injection - ENT ENT exam: Normal exam Ear exam: Normal external inspection Nasal Exam: Normal inspection Mouth exam: Normal external inspection - Neck Neck exam: Normal inspection - Respiratory Respiratory exam: Normal lung sounds bilaterally. negative: Respiratory distress - Cardiovascular Cardiovascular Exam: Regular rate, Normal rhythm, Normal heart sounds - Rectal Rectal exam: Deferred - exam: Deferred - Extremities Extremities exam: Full ROM, Joint swelling (mild pre patellar swelling), Normal capillary refill, Tenderness, Other (non tender medial and lateral joint line, no effusion). negative: Calf tenderness, Pedal edema - Back Back exam: Denies: CVA tenderness (R), CVA tenderness (L) - Neurological Neurological exam: CN II-XII intact, Oriented X3 - Psychiatric Psychiatric exam: Normal affect, Normal mood - Skin Skin exam: Dry, Intact, Normal color, Warm Course Vital Signs 08/21/18 20:26 Temperature 98.6 F Pulse Rate [ 77 Pulse Ox Probe] Respiratory 20 Rate Blood Pressure 132/70 [Left Arm] Pulse Ox 97 Disposition Disposition: Discharge Clinical Impression: Arthritis of knee, Gout Disposition: Home, Self-Care Condition: (1) Good Instructions: Gout (ED) Additional Instructions: Call your doctor for the next available follow up appointment Review this ER visit and the tests performed with your family doctor Return to the ER for a recheck if worse, any new concerns or questions Take the prescriptions provided as directed Monitor your blood sugar closely this week. It will temporarily be elevated while on prednisone Prescriptions: Prednisone [Prednisone 20Mg] 20 mg PO DAILY #5 tab Forms: Patient Portal Access Time of Disposition: 21:38 Quality - Quality Measures Quality Measures: N/A - Blood Pressure Screening Does Patient Have Any of the Following: Active Dx of HTN Blood Pressure Classification: Pre-Hypertensive BP Reading Systolic Measurement: 126 Diastolic Measurement: 55 Screening for High Blood Pressure: Patient Exclusion, Hx of HTN [G9744]
--- NOTE | 2018-08-24 16:43 | RADIOLOGY REPORT ---
EXAM: KNEE, LEFT 4 VIEWS HISTORY: LEFT KNEE PAIN. TECHNIQUE: Four views left knee. COMPARISON: None. FINDINGS: No fracture or acute osseous abnormality identified. The joint spaces are well maintained. There is chondrocalcinosis in the lateral joint space compartment. No destructive or erosive change. IMPRESSION: 1. NO FRACTURE OR ACUTE OSSEOUS ABNORMALITY. 2. CHONDROCALCINOSIS LATERAL JOINT SPACE COMPARTMENT. JOB NUMBER: [id number] MTDD
== END 2018-08-21 21:52 | disposition home or self-care (01) ==
LOC: ER 20:01
DX: M10.062 Idiopathic gout, left knee (principal); I10 Essential (primary) hypertension
CPT/HCPCS: 99283 ×2; 73564; J7512

== ENCOUNTER 2019-05-08 09:55 | Day surgery (SDC) | payer MEDICARE, MEDICAID ==
[2019-05-08] MEDS ORDERED: LIDOCAINE 2% MDV (20MG/ML) 20ML VIAL IV ONE (09:56)
[2019-05-08] MEDS ORDERED: PROPOFOL 10 MG/ML VIAL IV ONE (09:56)
--- NOTE | 2019-05-15 10:51 | Operative Note ---
SURGEON: Emily Perez MD OPERATION: COLONOSCOPY. INDICATIONS: This is a 68-year-old female with history of average risk for colorectal cancer who presented for screening colonoscopy. POSTOPERATIVE DIAGNOSIS: Normal colon. ANESTHESIA: Sedation is per Anesthesia. Pulse oximetry was monitored throughout the procedure to maintain O2 saturation of 90% or greater. Supplemental oxygen was administered via nasal cannula. Cardiac and vital signs were monitored throughout the duration of the procedure, and they were stable. The procedure of colonoscopy and risks and alternatives of the procedure, including the risk of bleeding and perforation, among others, were explained to the patient who voiced understanding and agreed to have the procedure done. Physical examination was performed, and the patient was found stable for sedation. PROCEDURE: The patient was placed in the left lateral position. Sedation was initiated. A digital rectal exam was performed and showed some mild external hemorrhoids with no palpable rectal masses. An Olympus PCF-180AL colonoscope was then inserted into the rectum under direct visualization. It was advanced to the cecum without difficulty. The ileocecal valve and appendiceal orifice were identified and photographed. The colonic mucosa was carefully examined upon introduction of the colonoscope. There were no lesions noted. The colonoscope was then withdrawn while carefully examining the colonic mucosal surfaces. No lesions were noted. In the rectum, retroflexion was performed and grade 1 internal hemorrhoids were noted. The colonoscope was then withdrawn and the procedure was terminated. The patient tolerated the procedure well without any immediate complications. The patient remained with stable vital signs and was transferred to the recovery room. RECOMMENDATIONS: 1. The patient should be on a high-fiber diet. 2. The patient is to have a repeat colonoscopy for screening in 10 years. Thank you for allowing me to participate in the care of your patient. AUGUST
== END 2019-05-08 11:50 | disposition home or self-care (01) ==
LOC: HOP 09:55
PROVIDERS: ATTEND Internal Medicine Gastroenterology
DX: Z12.11 Encounter for screening for malignant neoplasm of colon (principal); K64.0 First degree hemorrhoids; J44.9 Chronic obstructive pulmonary disease, unspecified; I10 Essential (primary) hypertension; E03.9 Hypothyroidism, unspecified; E11.9 Type 2 diabetes mellitus without complications; M10.9 Gout, unspecified; E78.00 Pure hypercholesterolemia, unspecified; F32.9 Major depressive disorder, single episode, unspecified
CPT/HCPCS: 00812; G0121